=== PATIENT | male | born 1995 | race Caucasian/White ===

== ENCOUNTER 2021-01-14 21:58 | Emergency (ER) | payer MEDICAID ==
[~2021-01-14] VITALS: Ht 170.2 cm; Wt 80.0 kg
[2021-01-14 22:09] VITALS: BP 130/81
[2021-01-14] MEDS ORDERED: ACETAMINOPHEN 500 MG TABLET PO ONE (23:00)
[2021-01-14] MEDS ORDERED: PERTUSS(ACELL),DIPH,TET VAC/PF 0.5 ML SYRINGE IM. ONE (23:00)
== END 2021-01-15 01:20 | disposition home or self-care (01) ==
LOC: EMS 22:00
DX: S01.511A Laceration without foreign body of lip, initial encounter (principal); S09.90XA Unspecified injury of head, initial encounter; Y08.89XA Assault by other specified means, initial encounter; Y93.89 Activity, other specified; Y92.89 Other specified places as the place of occurrence of the external cause; Y99.8 Other external cause status
CPT/HCPCS: 12011; 70450; 90471; 90715; 99284